=== PATIENT | female | born 1965 | race Native Hawaiian/Other Pacific Islander ===

== ENCOUNTER 2017-10-17 13:22 | Outpatient (CLI) | payer OTHER | END 2017-10-17 19:48 | disposition home or self-care (01) | LOC: RAD 13:22 | DX: M54.5 Low back pain (principal) ==

== ENCOUNTER 2018-01-05 13:07 | Outpatient (CLI) | payer OTHER | END 2018-01-05 19:24 | disposition home or self-care (01) | LOC: MAMMO 13:07 | DX: Z12.31 Encounter for screening mammogram for malignant neoplasm of breast (principal) ==

== ENCOUNTER 2019-01-14 07:51 | Outpatient (CLI) | payer OTHER | END 2019-01-14 23:26 | disposition home or self-care (01) | LOC: MAMMO 07:51 | DX: Z12.31 Encounter for screening mammogram for malignant neoplasm of breast (principal) ==

== ENCOUNTER 2022-04-04 09:21 | Outpatient (CLI) | payer OTHER | END 2022-04-04 18:59 | disposition home or self-care (01) | LOC: MAMMO 09:21 | PROVIDERS: ATTEND Nurse Practitioner Family | DX: Z12.31 Encounter for screening mammogram for malignant neoplasm of breast (principal) ==